=== PATIENT | male | born 1970 | race Caucasian/White ===

== ENCOUNTER 2017-05-03 17:34 | Emergency (ER) | payer SELFPAY ==
[~2017-05-03] VITALS: Ht 172.7 cm; Wt 100.0 kg
[~2017-05-03 17:34] MED LIST: LORTAB5 PO; NAPROSYN500 MG OR; NO MEDS; TESSALON PER100 MG PO; ZITHROMAX250 MG PO
[2017-05-03] MEDS ORDERED: FLEXERIL PO (18:43)
[2017-05-03] MEDS ORDERED: NAPROSYN500 MG PO (18:43)
[2017-05-03 18:47] VITALS: BP 130/87
[2017-05-03] MEDS ORDERED: MOTRIN800 MG PO (22:44)
[2017-05-03] MEDS ORDERED: ORPHENADRINE100 MG PO (22:44)
== END 2017-05-03 19:05 | disposition home or self-care (01) | DRG 563 ==
LOC: ED 17:34
DX: S39.012A Strain of muscle, fascia and tendon of lower back, initial encounter (principal); X50.0XXA Overexertion from strenuous movement or load, initial encounter; X50.3XXA Overexertion from repetitive movements, initial encounter; Y93.89 Activity, other specified; Y92.89 Other specified places as the place of occurrence of the external cause

== ENCOUNTER 2017-05-03 19:23 | Emergency (ER) | payer SELFPAY ==
[~2017-05-03] VITALS: Ht 172.7 cm; Wt 100.0 kg
[~2017-05-03 19:23] MED LIST changes: +FLEXERIL PO; +NAPROSYN500 MG PO
[2017-05-03] MEDS ORDERED: ORPHENADRINE100 MG PO (22:44)
[2017-05-03] MEDS ORDERED: MOTRIN800 MG PO (22:44)
[2017-05-03 22:50] VITALS: BP 124/77
== END 2017-05-03 22:58 | disposition home or self-care (01) | DRG 563 ==
LOC: ED 19:23
DX: S39.012A Strain of muscle, fascia and tendon of lower back, initial encounter (principal); X50.3XXA Overexertion from repetitive movements, initial encounter; Y93.89 Activity, other specified; Y92.89 Other specified places as the place of occurrence of the external cause

== ENCOUNTER 2017-09-16 22:53 | Emergency (ER) | payer OTHER ==
[~2017-09-16] VITALS: Ht 172.7 cm; Wt 102.2 kg
[~2017-09-16 22:53] MED LIST changes: +MOTRIN800 MG PO; +ORPHENADRINE100 MG PO
[2017-09-17 00:08] VITALS: BP 142/79
== END 2017-09-17 00:09 | disposition home or self-care (01) | DRG 921 ==
LOC: ED 22:53
DX: L76.22 Postprocedural hemorrhage of skin and subcutaneous tissue following other procedure (principal); Y83.8 Other surgical procedures as the cause of abnormal reaction of the patient, or of later complication, without mention of misadventure at the time of the procedure

== ENCOUNTER 2022-01-26 07:46 | Day surgery (SDC) | payer MEDICARE ==
[~2022-01-26] VITALS: Ht 172.7 cm; Wt 99.8 kg
[~2022-01-26 07:46] MED LIST changes: +CYCLOBENZAPRINE10 MG PO; +PERCOCET 5/325M1 TAB PO; +PHENTERMINE37.5 MG PO
[2022-01-26 11:09] VITALS: BP 129/90
== END 2022-01-26 10:59 | disposition home or self-care (01) ==
LOC: ENDO 07:46
PROVIDERS: ATTEND Surgery
PROC: 0DJD8ZZ Inspection of Lower Intestinal Tract, Via Natural or Artificial Opening Endoscopic (ICD-10-PCS; principal; 2022-01-26)
DX: Z12.11 Encounter for screening for malignant neoplasm of colon (principal); Z83.71 Family history of colonic polyps

== ENCOUNTER 2024-06-09 19:32 | Emergency (ER) | payer MEDICARE ==
[2024-06-09] VITALS (16 sets, daily range): BP systolic 120–145; BP diastolic 78–101
[~2024-06-09] VITALS: Ht 172.7 cm; Wt 104.5 kg
[2024-06-09] MEDS ORDERED: METOCLOPRAMIDE HCL 10 MG/2 ML SDV IV ONE (20:00)
[2024-06-09 20:20] LABS: BASO% 0.5 % (0-3); EOS% 2.1 % (0-8); HEMATOCRIT 46.2 % (39.0-50.0); HEMOGLOBIN 15.6 g/dl (14.0-18.0); IMMATURE GRANULOCYTES 0.5 % (0.0-5.0); MEAN CORPUSCULAR HGB 29.4 pG CALC (26.0-32.0); MEAN CORPUSCULAR HGB CONC 33.8 g/dL CAL (32.0-36.0); MONO% 7.8 % (2-13); NEUT# 7.56 thou/uL (1.82-7.42); NEUT% 74.1 % (42-76); RED BLOOD COUNT 5.31 mill/uL (4.70-6.10); RED CELL DISTRI WIDTH 12.7 % (11.5-15.5)
[2024-06-09 20:30] LABS: ALBUMIN 4.5 g/dL (3.2-5.0); CREATININE 0.9 mg/dL (0.7-1.3); POTASSIUM 4.8 mmol/l (3.5-5.1)
[2024-06-09 20:35] LABS: D-DIMER 0.2 mg/L (0.19-0.60)
[2024-06-09 20:37] LABS: BILIRUBIN, TOTAL 1.1 mg/dL (0.2-1.3)
[2024-06-09 20:41] LABS: URINE BILIRUBIN - DIPSTICK Negative (NEGATIVE); URINE BLOOD DIPSTICK Trace-lysed (NEGATIVE); URINE GLUCOSE - DIPSTICK Negative (NEGATIVE); URINE KETONE Negative (NEGATIVE); URINE LEUK ESTERASE Negative (NEGATIVE); URINE NITRITE - DIPSTICK Negative (Negative); URINE PROTEIN - DIPSTICK Negative (NEG-TRACE); URINE SPECIFIC GRAVITY >=1.030
[2024-06-09 20:43] LABS: ACT PARTIAL THROMBO TIME 24.1 SECONDS (20.0-32.5)
[2024-06-09 20:43] LABS: URINE COLOR Yellow
[2024-06-09 20:44] LABS: PROTHROMBIN TIME 10.8 SECONDS (9.0-12.5)
[2024-06-09] MEDS ORDERED: ANTIVERT25 M1 PO (23:12)
== END 2024-06-09 23:24 | disposition home or self-care (01) ==
LOC: ED 19:32
PROVIDERS: Emergency Medicine
DX: R42 Dizziness and giddiness (principal); I25.2 Old myocardial infarction